=== PATIENT | male | born 1980 | race Two or more races ===

== ENCOUNTER 2024-09-23 09:29 | Emergency (ER) | payer BC ==
[~2024-09-23] VITALS: Ht 170.2 cm; Wt 65.8 kg
[2024-09-23] MEDS ORDERED: 0.9 % SODIUM CHLORIDE 1,000 ML IV STA (09:56)
[2024-09-23] MEDS ORDERED: TETANUS & DIPHTHERIA TOX,ADULT 0.5 ML VIAL IM ONE (10:00)
[2024-09-23] MEDS ORDERED: ONDANSETRON HCL 2 MG/ML VIAL IV STA (10:15)
[2024-09-23] MEDS ORDERED: FAMOTIDINE/PF 20 MG in 0.9 % SODIUM CHLORIDE 8 ML IV PUSH STA (10:15)
[2024-09-23 10:26] LABS: HEMATOCRIT 43.6 % (39.0-48.0); HEMOGLOBIN 15.3 g/dL (13-16.00); MEAN CELL VOLUME 81.3 fL (80.0-100.00); MEAN CORPUSCULAR HEMOGLOBIN 28.5 pg (27.00-32.0); MEAN CORPUSCULAR HGB CONC 35.1 g/dl (32.0-36.0); PLATELET COUNT 213 K/uL (150-450); RED BLOOD COUNT 5.36 M/uL (4.00-6.00); RED CELL DISTRIBUTION WIDTH 13.2 % (11.5-14.5)
[2024-09-23 11:53] LABS: CALCIUM 9.4 mg/dL (8.5-10.1); CREATININE SERUM 0.98 mg/dL (0.70-1.30); GFR 83.88; POTASSIUM 4.37 mEq/L (3.5-5.1)
== END 2024-09-23 13:06 | disposition home or self-care (01) ==
LOC: ER 09:31
PROVIDERS: Emergency Medicine
DX: S01.81XA Laceration without foreign body of other part of head, initial encounter (principal); X58.XXXA Exposure to other specified factors, initial encounter; Y93.89 Activity, other specified; Y92.89 Other specified places as the place of occurrence of the external cause; Y99.8 Other external cause status; K29.70 Gastritis, unspecified, without bleeding
CPT/HCPCS: 12053; 36415; 90471; 90714; J1670